=== PATIENT | male | born 1980 | race African-American/Black ===

== ENCOUNTER 2021-10-16 10:34 | Inpatient (IN) | payer OTHER ==
[2021-10-16] MEDS ORDERED: IBUPROFEN 400 MG TABLET (FP) PO PRN (11:21)
[2021-10-16] MEDS ORDERED: P-EPHED 60MG/TRIPROLIDI 2.5MG TABLET PO PRN (11:21)
[2021-10-16] MEDS ORDERED: NICOTINE 10 MG CARTRIDGE (INHALER) IH PRN (11:21)
[2021-10-16] MEDS ORDERED: guaiFENesin 200 MG/10 ML 10 ML UNIT-DOSE CUPS PO PRN (11:21)
[2021-10-16] MEDS ORDERED: MAGNESIUM CITRATE 300 ML BOTTLE PO PRN (11:21)
[2021-10-16] MEDS ORDERED: LOPERAMIDE HCL 2 MG CAPSULE PO PRN (11:21)
[2021-10-16] MEDS ORDERED: ACETAMINOPHEN 325 MG TABLET (FP) PO PRN (11:21)
[2021-10-16] MEDS ORDERED: MAGNESIUM HYDROX 2400MG/30ML ORAL SUSPENSION 30 ML CUP PO PRN (11:21)
[2021-10-16] MEDS ORDERED: MAG HYDROX/AL HYDROX/SIMETH 30 ML UNIT-DOSE CUP PO PRN (11:21)
[2021-10-16 11:45] VITALS: BMI 30.9
[2021-10-16 16:23] LABS: HEMOGLOBIN 14.1 GM/dL (11.7-16.9); MCHC 33.6 g/dl (32.0-35.9); MEAN CELL VOLUME 92.1 fl (80-96); PLATELET COUNT 270 10^3/uL (134-434); RBC 4.55 M/mm3 (4.00-5.60); RDW 14.2 % (11.9-15.9); WHITE BLOOD COUNT 5.3 K/mm3 (4.0-10.0)
[2021-10-16 16:36] LABS: BLOOD UREA NITROGEN 7.2 mg/dL (7-18)
[2021-10-16 16:37] LABS: ALBUMIN 3.6 g/dl (3.4-5.0)
[2021-10-16 16:39] LABS: CREATININE 1.2 mg/dL (0.55-1.3)
[2021-10-16 16:40] LABS: TOT PROT 7.4 g/dl (6.4-8.2)
[2021-10-16 16:44] LABS: BILIRUBIN,TOTAL 1.2 mg/dL (0.2-1)
[2021-10-16 17:29] LABS: SYPHILIS W/ RPR CONF REACTIVE (NONREACTIVE)
[2021-10-16] MEDS: NICOTINE 14 MG/24 HOURS TOPICAL PATCH TD SCH (19:48)
[2021-10-16] MEDS: hydrOXYzine PAMOATE 25 MG CAPSULE (FP) PO SCH ×3 (19:48→21:57)
[2021-10-16] MEDS: PRENATAL VITAMINS W/ FOLIC ACID TABLET (FP) PO SCH (19:48)
[2021-10-16] MEDS: MELATONIN 5 MG TABLETS PO SCH (21:57)
[2021-10-16] MEDS: THIAMINE HCL 100 MG TABLET (FP) PO SCH (21:57)
[2021-10-16] MEDS ORDERED: TUBERCULIN PPD 5 TU/0.1ML VIAL ID ONE (22:13)
[2021-10-17] MEDS: hydrOXYzine PAMOATE 25 MG CAPSULE (FP) PO SCH ×5 (06:23→21:06)
[2021-10-17] MEDS: PRENATAL VITAMINS W/ FOLIC ACID TABLET (FP) PO SCH (09:58)
[2021-10-17] MEDS: NICOTINE 14 MG/24 HOURS TOPICAL PATCH TD SCH (09:59)
[2021-10-17] MEDS: risperiDONE 1 MG TABLET PO SCH (21:06)
[2021-10-17] MEDS: MELATONIN 5 MG TABLETS PO SCH (21:06)
[2021-10-17] MEDS: THIAMINE HCL 100 MG TABLET (FP) PO SCH (21:06)
[2021-10-18] MEDS: hydrOXYzine PAMOATE 25 MG CAPSULE (FP) PO SCH ×5 (06:21→21:43)
[2021-10-18] MEDS: risperiDONE 1 MG TABLET PO SCH ×2 (10:16→21:43)
[2021-10-18] MEDS: PRENATAL VITAMINS W/ FOLIC ACID TABLET (FP) PO SCH (10:16)
[2021-10-18] MEDS: NICOTINE 14 MG/24 HOURS TOPICAL PATCH TD SCH (10:16)
[2021-10-18] MEDS: THIAMINE HCL 100 MG TABLET (FP) PO SCH (21:43)
[2021-10-18] MEDS: MELATONIN 5 MG TABLETS PO SCH (21:43)
[2021-10-19] MEDS: hydrOXYzine PAMOATE 25 MG CAPSULE (FP) PO SCH ×5 (07:02→21:07)
[2021-10-19] MEDS: PRENATAL VITAMINS W/ FOLIC ACID TABLET (FP) PO SCH (10:04)
[2021-10-19] MEDS: risperiDONE 1 MG TABLET PO SCH ×2 (10:04→21:07)
[2021-10-19] MEDS: NICOTINE 14 MG/24 HOURS TOPICAL PATCH TD SCH (10:06)
[2021-10-19 10:49] LABS: URINE APPEARANCE CLEAR; URINE BILIRUBIN NEGATIVE (NEGATIVE); URINE COLOR YELLOW; URINE GLUCOSE (UA) NEGATIVE (NEGATIVE); URINE KETONE TRACE (NEGATIVE); URINE LEUK ESTERASE NEGATIVE (NEGATIVE); URINE NITRITE NEGATIVE (NEGATIVE); URINE PROTEIN TRACE (NEGATIVE); URINE UROBILINOGEN 0.2 mg/dL (0.2-1.0)
[2021-10-19] MEDS: MELATONIN 5 MG TABLETS PO SCH (21:07)
[2021-10-19] MEDS: THIAMINE HCL 100 MG TABLET (FP) PO SCH (21:08)
[2021-10-20] MEDS: hydrOXYzine PAMOATE 25 MG CAPSULE (FP) PO SCH ×5 (06:27→21:17)
[2021-10-20] MEDS: PRENATAL VITAMINS W/ FOLIC ACID TABLET (FP) PO SCH (09:59)
[2021-10-20] MEDS: risperiDONE 1 MG TABLET PO SCH ×2 (10:00→21:17)
[2021-10-20] MEDS: NICOTINE 14 MG/24 HOURS TOPICAL PATCH TD SCH (10:00)
[2021-10-20] MEDS: DOXYCYCLINE HYCLATE 100 MG TABLET PO SCH (17:28)
[2021-10-20] MEDS: BICTEGRAV/EMTRICIT/TENOFOV (BIKTARVY) 50-200-25 MG TABLET PO SCH (17:28)
[2021-10-20] MEDS ORDERED: CLINDAMYCIN HCL 150 MG CAPSULE (FP) PO SCH (18:00)
[2021-10-20] MEDS: TERAZOSIN HCL 1 MG CAPSULE PO SCH (21:17)
[2021-10-20] MEDS: ATORVASTATIN CA 20 MG TABLET (FP) PO SCH (21:17)
[2021-10-20] MEDS: THIAMINE HCL 100 MG TABLET (FP) PO SCH (21:18)
[2021-10-20] MEDS: MELATONIN 5 MG TABLETS PO SCH (21:18)
[2021-10-20] MEDS: valACYclovir HCL 500 MG TABLET (FP) PO SCH (21:18)
[2021-10-21] MEDS: hydrOXYzine PAMOATE 25 MG CAPSULE (FP) PO SCH ×5 (06:23→21:01)
[2021-10-21] MEDS ORDERED: ERGOCALCIFEROL (VIT D2) 50,000 UNIT (1.25 MG) CAPSULE PO SCH (10:00)
[2021-10-21] MEDS: risperiDONE 1 MG TABLET PO SCH ×2 (11:01→21:01)
[2021-10-21] MEDS: BICTEGRAV/EMTRICIT/TENOFOV (BIKTARVY) 50-200-25 MG TABLET PO SCH (11:01)
[2021-10-21] MEDS: valACYclovir HCL 500 MG TABLET (FP) PO SCH ×2 (11:01→21:01)
[2021-10-21] MEDS: NICOTINE 14 MG/24 HOURS TOPICAL PATCH TD SCH (11:13)
[2021-10-21] MEDS: PRENATAL VITAMINS W/ FOLIC ACID TABLET (FP) PO SCH (11:13)
[2021-10-21] MEDS: DOXYCYCLINE HYCLATE 100 MG TABLET PO SCH ×2 (11:17→18:50)
[2021-10-21] MEDS: ZINC SULFATE 220 MG CAPSULE (FP) PO SCH (16:02)
[2021-10-21] MEDS: ATORVASTATIN CA 20 MG TABLET (FP) PO SCH (21:01)
[2021-10-21] MEDS: TERAZOSIN HCL 1 MG CAPSULE PO SCH (21:01)
[2021-10-21] MEDS: MELATONIN 5 MG TABLETS PO SCH (21:01)
[2021-10-21] MEDS: THIAMINE HCL 100 MG TABLET (FP) PO SCH (21:01)
[2021-10-22] MEDS: hydrOXYzine PAMOATE 25 MG CAPSULE (FP) PO SCH ×5 (06:01→21:18)
[2021-10-22] MEDS: valACYclovir HCL 500 MG TABLET (FP) PO SCH ×2 (10:51→21:18)
[2021-10-22] MEDS: DOXYCYCLINE HYCLATE 100 MG TABLET PO SCH ×2 (10:51→17:30)
[2021-10-22] MEDS: risperiDONE 1 MG TABLET PO SCH ×2 (10:51→21:18)
[2021-10-22] MEDS: PRENATAL VITAMINS W/ FOLIC ACID TABLET (FP) PO SCH (10:51)
[2021-10-22] MEDS: BICTEGRAV/EMTRICIT/TENOFOV (BIKTARVY) 50-200-25 MG TABLET PO SCH (10:51)
[2021-10-22] MEDS: NICOTINE 14 MG/24 HOURS TOPICAL PATCH TD SCH (10:53)
[2021-10-22] MEDS: ZINC SULFATE 220 MG CAPSULE (FP) PO SCH (10:53)
[2021-10-22] MEDS: TERAZOSIN HCL 1 MG CAPSULE PO SCH (21:18)
[2021-10-22] MEDS: THIAMINE HCL 100 MG TABLET (FP) PO SCH (21:18)
[2021-10-22] MEDS: MELATONIN 5 MG TABLETS PO SCH (21:18)
[2021-10-22] MEDS: ATORVASTATIN CA 20 MG TABLET (FP) PO SCH (21:18)
[2021-10-23] MEDS: hydrOXYzine PAMOATE 25 MG CAPSULE (FP) PO SCH (07:15)
[2021-10-23] MEDS ORDERED: hydrOXYzine PAMOATE 25 MG CAPSULE (FP) PO PRN (09:18)
[2021-10-23] MEDS: risperiDONE 1 MG TABLET PO SCH ×2 (09:45→21:16)
[2021-10-23] MEDS: valACYclovir HCL 500 MG TABLET (FP) PO SCH ×2 (09:45→21:16)
[2021-10-23] MEDS: PRENATAL VITAMINS W/ FOLIC ACID TABLET (FP) PO SCH (09:46)
[2021-10-23] MEDS: BICTEGRAV/EMTRICIT/TENOFOV (BIKTARVY) 50-200-25 MG TABLET PO SCH (09:46)
[2021-10-23] MEDS: NICOTINE 14 MG/24 HOURS TOPICAL PATCH TD SCH (10:09)
[2021-10-23] MEDS: ZINC SULFATE 220 MG CAPSULE (FP) PO SCH (10:09)
[2021-10-23] MEDS: DOXYCYCLINE HYCLATE 100 MG TABLET PO SCH ×2 (10:11→18:24)
[2021-10-23] MEDS: THIAMINE HCL 100 MG TABLET (FP) PO SCH (21:16)
[2021-10-23] MEDS: MELATONIN 5 MG TABLETS PO SCH (21:16)
[2021-10-23] MEDS: ATORVASTATIN CA 20 MG TABLET (FP) PO SCH (21:16)
[2021-10-23] MEDS: TERAZOSIN HCL 1 MG CAPSULE PO SCH (21:17)
[2021-10-24] MEDS: PRENATAL VITAMINS W/ FOLIC ACID TABLET (FP) PO SCH (09:57)
[2021-10-24] MEDS: DOXYCYCLINE HYCLATE 100 MG TABLET PO SCH ×2 (09:58→18:19)
[2021-10-24] MEDS: risperiDONE 1 MG TABLET PO SCH ×2 (09:58→21:06)
[2021-10-24] MEDS: valACYclovir HCL 500 MG TABLET (FP) PO SCH ×2 (09:58→21:05)
[2021-10-24] MEDS: BICTEGRAV/EMTRICIT/TENOFOV (BIKTARVY) 50-200-25 MG TABLET PO SCH (09:58)
[2021-10-24] MEDS: NICOTINE 14 MG/24 HOURS TOPICAL PATCH TD SCH (09:58)
[2021-10-24] MEDS: ZINC SULFATE 220 MG CAPSULE (FP) PO SCH (09:59)
[2021-10-24] MEDS: MELATONIN 5 MG TABLETS PO SCH (21:06)
[2021-10-24] MEDS: ATORVASTATIN CA 20 MG TABLET (FP) PO SCH (21:06)
[2021-10-24] MEDS: THIAMINE HCL 100 MG TABLET (FP) PO SCH (21:06)
[2021-10-24] MEDS: TERAZOSIN HCL 1 MG CAPSULE PO SCH (21:30)
[2021-10-25] MEDS: PRENATAL VITAMINS W/ FOLIC ACID TABLET (FP) PO SCH (09:58)
[2021-10-25] MEDS: valACYclovir HCL 500 MG TABLET (FP) PO SCH ×2 (09:58→21:03)
[2021-10-25] MEDS: BICTEGRAV/EMTRICIT/TENOFOV (BIKTARVY) 50-200-25 MG TABLET PO SCH (09:58)
[2021-10-25] MEDS: risperiDONE 1 MG TABLET PO SCH ×2 (09:58→21:03)
[2021-10-25] MEDS: DOXYCYCLINE HYCLATE 100 MG TABLET PO SCH ×2 (09:59→17:09)
[2021-10-25] MEDS: ZINC SULFATE 220 MG CAPSULE (FP) PO SCH (09:59)
[2021-10-25] MEDS: NICOTINE 14 MG/24 HOURS TOPICAL PATCH TD SCH (09:59)
[2021-10-25] MEDS: ATORVASTATIN CA 20 MG TABLET (FP) PO SCH (21:03)
[2021-10-25] MEDS: MELATONIN 5 MG TABLETS PO SCH (21:04)
[2021-10-25] MEDS: THIAMINE HCL 100 MG TABLET (FP) PO SCH (21:04)
[2021-10-25] MEDS: TERAZOSIN HCL 1 MG CAPSULE PO SCH (21:05)
[2021-10-26] MEDS: valACYclovir HCL 500 MG TABLET (FP) PO SCH (09:56)
[2021-10-26] MEDS: DOXYCYCLINE HYCLATE 100 MG TABLET PO SCH ×2 (09:56→18:40)
[2021-10-26] MEDS: PRENATAL VITAMINS W/ FOLIC ACID TABLET (FP) PO SCH (09:56)
[2021-10-26] MEDS: BICTEGRAV/EMTRICIT/TENOFOV (BIKTARVY) 50-200-25 MG TABLET PO SCH (09:56)
[2021-10-26] MEDS: ZINC SULFATE 220 MG CAPSULE (FP) PO SCH (09:56)
[2021-10-26] MEDS: NICOTINE 14 MG/24 HOURS TOPICAL PATCH TD SCH (09:56)
[2021-10-26] MEDS: risperiDONE 1 MG TABLET PO SCH (11:01)
[2021-10-26 19:55] VITALS: BP 153/87; PULSE 85; TEMP 97.5
== END 2021-10-26 20:00 | disposition home or self-care (01) | DRG 772 ==
LOC: YASAS 10:34 → Y3W 16:28
PROVIDERS: ADMIT Allergy & Immunology; ATTEND Psychiatry & Neurology Pain Medicine
PROC: HZ42ZZZ Group Counseling for Substance Abuse Treatment, Cognitive-Behavioral (ICD-10-PCS; principal; 2021-10-16)
DX: F11.20 Opioid dependence, uncomplicated (principal); F10.20 Alcohol dependence, uncomplicated; F14.20 Cocaine dependence, uncomplicated; F12.20 Cannabis dependence, uncomplicated; F17.210 Nicotine dependence, cigarettes, uncomplicated; F20.9 Schizophrenia, unspecified; F31.9 Bipolar disorder, unspecified; Z21 Asymptomatic human immunodeficiency virus [HIV] infection status; E78.5 Hyperlipidemia, unspecified; Z86.19 Personal history of other infectious and parasitic diseases; Z88.2 Allergy status to sulfonamides
CPT/HCPCS: 36415; 80053; 81003; 85027; 86593; 86780; 86803; 87491; 87522; 87591; 87661; 93005; 93010; C9803-CS; J2794; U0003; U0005

== ENCOUNTER 2022-12-10 15:02 | Inpatient (IN) | payer OTHER ==
[2022-12-10 15:52] VITALS: BMI 23.7
[2022-12-10] MEDS ORDERED: POLYETHYLENE GLYCOL (HEALTHYLAX) 3350 17 GM PACKET PO PRN (18:03)
[2022-12-10] MEDS ORDERED: NICOTINE POLACRILEX 2 MG GUM BUC PRN (18:03)
[2022-12-10] MEDS ORDERED: NALOXONE HCL 0.4 MG/ML VIAL IM PRN (18:03)
[2022-12-10] MEDS ORDERED: COLLOIDAL OATMEAL 1 BAR EACH TP PRN (18:03)
[2022-12-10] MEDS ORDERED: NALOXONE HCL (KLOXXADO) 8 MG SPRAY NS PRN (18:03)
[2022-12-10] MEDS ORDERED: LOPERAMIDE HCL 2 MG CAPSULE PO PRN (18:03)
[2022-12-10] MEDS ORDERED: ACETAMINOPHEN 325 MG TABLET (FP) PO PRN (18:03)
[2022-12-10] MEDS ORDERED: BENZOCAINE/MENTHOL (CHLORASEPTIC ) LOZENGE MM PRN (18:03)
[2022-12-10] MEDS ORDERED: AMMONIUM LACTATE 12% LOTION 225 GM BOTTLE TP PRN (18:03)
[2022-12-10] MEDS ORDERED: MAGNESIUM HYDROX 2400MG/30ML ORAL SUSPENSION 30 ML CUP PO PRN (18:03)
[2022-12-10] MEDS ORDERED: guaiFENesin 600 MG TABLET.ER (FP) PO PRN (18:03)
[2022-12-10] MEDS ORDERED: BENZONATATE 200 MG CAPSULE PO PRN (18:03)
[2022-12-10] MEDS: THIAMINE HCL 100 MG TABLET (FP) PO SCH (21:39)
[2022-12-10] MEDS: MELATONIN 5 MG TABLETS PO SCH (21:39)
[2022-12-11] MEDS: NICOTINE 14 MG/24 HOURS TOPICAL PATCH TD SCH (09:53)
[2022-12-11] MEDS: PRENATAL VITAMINS W/ FOLIC ACID TABLET (FP) PO SCH (09:53)
[2022-12-11 10:10] LABS: POTASSIUM 3.8 mmol/L (3.5-5.1)
[2022-12-11 10:18] LABS: BLOOD UREA NITROGEN 10.3 mg/dL (7-18)
[2022-12-11 10:18] LABS: URINE APPEARANCE CLEAR; URINE BILIRUBIN NEGATIVE (NEGATIVE); URINE COLOR YELLOW; URINE GLUCOSE (UA) NEGATIVE (NEGATIVE); URINE KETONE NEGATIVE (NEGATIVE); URINE LEUK ESTERASE NEGATIVE (NEGATIVE); URINE NITRITE NEGATIVE (NEGATIVE); URINE PROTEIN TRACE (NEGATIVE)
[2022-12-11 10:20] LABS: BILIRUBIN,TOTAL 0.2 mg/dL (0.2-1); TOT PROT 7.1 g/dl (6.4-8.2)
[2022-12-11 10:21] LABS: CALCIUM 8.8 mg/dL (8.5-10.1); CREATININE 0.9 mg/dL (0.55-1.3); HEMATOCRIT 36.9 % (35.4-49); HEMOGLOBIN 12.7 GM/dL (11.7-16.9); MCH 29.8 pg (25.7-33.7); MCHC 34.5 g/dl (32.0-35.9); MEAN CELL VOLUME 86.3 fl (80-96); MEAN PLT VOLUME 8.3 fl (7.5-11.1); PLATELET COUNT 307 10^3/uL (134-434); RBC 4.28 M/mm3 (4.00-5.60); RDW 13.6 % (11.9-15.9); WHITE BLOOD COUNT 6.5 K/mm3 (4.0-10.0)
[2022-12-11] MEDS: MIRTAZAPINE 15 MG TABLET (FP) PO SCH (22:11)
[2022-12-11] MEDS: THIAMINE HCL 100 MG TABLET (FP) PO SCH (22:11)
[2022-12-11] MEDS: QUEtiapine FUMARATE 100 MG TABLET (FP) PO SCH (22:11)
[2022-12-11] MEDS: MELATONIN 5 MG TABLETS PO SCH (22:11)
[2022-12-12] MEDS: PRENATAL VITAMINS W/ FOLIC ACID TABLET (FP) PO SCH (10:42)
[2022-12-12] MEDS: NICOTINE 14 MG/24 HOURS TOPICAL PATCH TD SCH (10:42)
[2022-12-12] MEDS: QUEtiapine FUMARATE 100 MG TABLET (FP) PO SCH (21:05)
[2022-12-12] MEDS: THIAMINE HCL 100 MG TABLET (FP) PO SCH (21:05)
[2022-12-12] MEDS: MELATONIN 5 MG TABLETS PO SCH (21:05)
[2022-12-12] MEDS: MIRTAZAPINE 15 MG TABLET (FP) PO SCH (21:05)
[2022-12-13] MEDS: NICOTINE 14 MG/24 HOURS TOPICAL PATCH TD SCH (10:23)
[2022-12-13] MEDS: PRENATAL VITAMINS W/ FOLIC ACID TABLET (FP) PO SCH (10:24)
[2022-12-13] MEDS: THIAMINE HCL 100 MG TABLET (FP) PO SCH (21:23)
[2022-12-13] MEDS: MELATONIN 5 MG TABLETS PO SCH (21:24)
[2022-12-13] MEDS: MIRTAZAPINE 15 MG TABLET (FP) PO SCH (21:24)
[2022-12-13] MEDS: QUEtiapine FUMARATE 100 MG TABLET (FP) PO SCH (21:24)
[2022-12-14] MEDS: PRENATAL VITAMINS W/ FOLIC ACID TABLET (FP) PO SCH (10:09)
[2022-12-14] MEDS: NICOTINE 14 MG/24 HOURS TOPICAL PATCH TD SCH (10:09)
[2022-12-14] MEDS: MIRTAZAPINE 15 MG TABLET (FP) PO SCH (21:22)
[2022-12-14] MEDS: MELATONIN 5 MG TABLETS PO SCH (21:22)
[2022-12-14] MEDS: THIAMINE HCL 100 MG TABLET (FP) PO SCH (21:22)
[2022-12-14] MEDS: QUEtiapine FUMARATE 100 MG TABLET (FP) PO SCH (21:22)
[2022-12-15] MEDS: NICOTINE 14 MG/24 HOURS TOPICAL PATCH TD SCH ×2 (10:26→10:27)
[2022-12-15] MEDS: PRENATAL VITAMINS W/ FOLIC ACID TABLET (FP) PO SCH (10:26)
[2022-12-15] MEDS: THIAMINE HCL 100 MG TABLET (FP) PO SCH (21:34)
[2022-12-15] MEDS: MELATONIN 5 MG TABLETS PO SCH (21:34)
[2022-12-15] MEDS: MIRTAZAPINE 15 MG TABLET (FP) PO SCH (21:34)
[2022-12-15] MEDS: QUEtiapine FUMARATE 100 MG TABLET (FP) PO SCH (21:35)
[2022-12-15] MEDS: ALBUTEROL SO4 HFA INHALER IH PRN (21:35)
[2022-12-16] MEDS: PRENATAL VITAMINS W/ FOLIC ACID TABLET (FP) PO SCH (10:10)
[2022-12-16] MEDS: NICOTINE 14 MG/24 HOURS TOPICAL PATCH TD SCH (10:10)
[2022-12-16] MEDS: cloNIDine HCL 0.1 MG TABLET PO SCH ×2 (11:32→21:05)
[2022-12-16] MEDS: BACLOFEN 10 MG TABLET (FP) PO SCH ×2 (13:56→21:05)
[2022-12-16] MEDS: QUEtiapine FUMARATE 100 MG TABLET (FP) PO SCH (21:05)
[2022-12-16] MEDS: THIAMINE HCL 100 MG TABLET (FP) PO SCH (21:05)
[2022-12-16] MEDS: ALBUTEROL SO4 HFA INHALER IH PRN (21:05)
[2022-12-16] MEDS: MELATONIN 5 MG TABLETS PO SCH (21:05)
[2022-12-16] MEDS: MIRTAZAPINE 15 MG TABLET (FP) PO SCH (21:05)
[2022-12-17] MEDS: BACLOFEN 10 MG TABLET (FP) PO SCH ×3 (06:58→21:35)
[2022-12-17] MEDS: PRENATAL VITAMINS W/ FOLIC ACID TABLET (FP) PO SCH (10:51)
[2022-12-17] MEDS: NICOTINE 14 MG/24 HOURS TOPICAL PATCH TD SCH (10:51)
[2022-12-17] MEDS: cloNIDine HCL 0.1 MG TABLET PO SCH ×2 (12:16→21:35)
[2022-12-17] MEDS: QUEtiapine FUMARATE 100 MG TABLET (FP) PO SCH (21:35)
[2022-12-17] MEDS: MELATONIN 5 MG TABLETS PO SCH (21:35)
[2022-12-17] MEDS: THIAMINE HCL 100 MG TABLET (FP) PO SCH (21:35)
[2022-12-17] MEDS: MIRTAZAPINE 15 MG TABLET (FP) PO SCH (21:35)
[2022-12-18] MEDS: IBUPROFEN 600 MG TABLET (FP) PO PRN ×2 (07:04→12:57)
[2022-12-18] MEDS: BACLOFEN 10 MG TABLET (FP) PO SCH ×3 (07:05→21:23)
[2022-12-18] MEDS: NICOTINE 14 MG/24 HOURS TOPICAL PATCH TD SCH (09:50)
[2022-12-18] MEDS: PRENATAL VITAMINS W/ FOLIC ACID TABLET (FP) PO SCH (09:50)
[2022-12-18] MEDS: cloNIDine HCL 0.1 MG TABLET PO SCH ×2 (09:50→21:24)
[2022-12-18] MEDS: ALBUTEROL SO4 HFA INHALER IH PRN ×2 (10:03→21:23)
[2022-12-18] MEDS: MELATONIN 5 MG TABLETS PO SCH (21:24)
[2022-12-18] MEDS: QUEtiapine FUMARATE 100 MG TABLET (FP) PO SCH (21:24)
[2022-12-18] MEDS: MIRTAZAPINE 15 MG TABLET (FP) PO SCH (21:24)
[2022-12-18] MEDS: THIAMINE HCL 100 MG TABLET (FP) PO SCH (21:24)
[2022-12-19] MEDS: IBUPROFEN 600 MG TABLET (FP) PO PRN ×2 (06:55→12:55)
[2022-12-19] MEDS: BACLOFEN 10 MG TABLET (FP) PO SCH ×3 (06:56→21:24)
[2022-12-19] MEDS: ALBUTEROL SO4 HFA INHALER IH PRN (08:47)
[2022-12-19] MEDS: cloNIDine HCL 0.1 MG TABLET PO SCH ×2 (09:19→21:24)
[2022-12-19] MEDS: NICOTINE 14 MG/24 HOURS TOPICAL PATCH TD SCH (09:19)
[2022-12-19] MEDS: PRENATAL VITAMINS W/ FOLIC ACID TABLET (FP) PO SCH (09:19)
[2022-12-19] MEDS: THIAMINE HCL 100 MG TABLET (FP) PO SCH (21:23)
[2022-12-19] MEDS: MELATONIN 5 MG TABLETS PO SCH (21:23)
[2022-12-19] MEDS: MIRTAZAPINE 15 MG TABLET (FP) PO SCH (21:25)
[2022-12-19] MEDS: QUEtiapine FUMARATE 100 MG TABLET (FP) PO SCH (21:25)
[2022-12-20] MEDS: BACLOFEN 10 MG TABLET (FP) PO SCH ×3 (06:57→21:04)
[2022-12-20] MEDS: IBUPROFEN 600 MG TABLET (FP) PO PRN ×2 (06:58→14:33)
[2022-12-20] MEDS: ALBUTEROL SO4 HFA INHALER IH PRN ×2 (06:59→21:04)
[2022-12-20] MEDS: NICOTINE 14 MG/24 HOURS TOPICAL PATCH TD SCH (09:46)
[2022-12-20] MEDS: PRENATAL VITAMINS W/ FOLIC ACID TABLET (FP) PO SCH (09:46)
[2022-12-20] MEDS: cloNIDine HCL 0.1 MG TABLET PO SCH ×2 (09:47→21:04)
[2022-12-20] MEDS: MAG HYDROX/AL HYDROX/SIMETH 30 ML UNIT-DOSE CUP PO PRN (14:33)
[2022-12-20] MEDS: QUEtiapine FUMARATE 100 MG TABLET (FP) PO SCH (21:04)
[2022-12-20] MEDS: MIRTAZAPINE 15 MG TABLET (FP) PO SCH (21:04)
[2022-12-20] MEDS: MELATONIN 5 MG TABLETS PO SCH (21:04)
[2022-12-20] MEDS: THIAMINE HCL 100 MG TABLET (FP) PO SCH (21:04)
[2022-12-20] MEDS: IBUPROFEN 400 MG TABLET (FP) PO PRN (21:05)
[2022-12-21] MEDS: BACLOFEN 10 MG TABLET (FP) PO SCH ×3 (07:18→21:29)
[2022-12-21] MEDS: PRENATAL VITAMINS W/ FOLIC ACID TABLET (FP) PO SCH (09:02)
[2022-12-21] MEDS: cloNIDine HCL 0.1 MG TABLET PO SCH ×2 (09:02→21:29)
[2022-12-21] MEDS: NICOTINE 14 MG/24 HOURS TOPICAL PATCH TD SCH (09:02)
[2022-12-21] MEDS: MAG HYDROX/AL HYDROX/SIMETH 30 ML UNIT-DOSE CUP PO PRN ×2 (09:05→21:30)
[2022-12-21] MEDS: IBUPROFEN 600 MG TABLET (FP) PO PRN ×2 (13:53→21:30)
[2022-12-21] MEDS: QUEtiapine FUMARATE 100 MG TABLET (FP) PO SCH (21:29)
[2022-12-21] MEDS: MELATONIN 5 MG TABLETS PO SCH (21:29)
[2022-12-21] MEDS: MIRTAZAPINE 15 MG TABLET (FP) PO SCH (21:29)
[2022-12-21] MEDS: THIAMINE HCL 100 MG TABLET (FP) PO SCH (21:29)
[2022-12-21] MEDS: ALBUTEROL SO4 HFA INHALER IH PRN (21:30)
[2022-12-22] MEDS: BACLOFEN 10 MG TABLET (FP) PO SCH ×3 (06:19→21:04)
[2022-12-22] MEDS: cloNIDine HCL 0.1 MG TABLET PO SCH ×2 (09:51→21:04)
[2022-12-22] MEDS: PRENATAL VITAMINS W/ FOLIC ACID TABLET (FP) PO SCH (09:51)
[2022-12-22] MEDS: NICOTINE 14 MG/24 HOURS TOPICAL PATCH TD SCH (09:51)
[2022-12-22] MEDS: IBUPROFEN 400 MG TABLET (FP) PO PRN (09:53)
[2022-12-22] MEDS: ALBUTEROL SO4 HFA INHALER IH PRN ×2 (09:54→21:04)
[2022-12-22] MEDS: QUEtiapine FUMARATE 100 MG TABLET (FP) PO SCH (21:04)
[2022-12-22] MEDS: MELATONIN 5 MG TABLETS PO SCH (21:04)
[2022-12-22] MEDS: THIAMINE HCL 100 MG TABLET (FP) PO SCH (21:04)
[2022-12-22] MEDS: MIRTAZAPINE 15 MG TABLET (FP) PO SCH (21:04)
[2022-12-22] MEDS: IBUPROFEN 600 MG TABLET (FP) PO PRN (21:05)
[2022-12-23] MEDS: IBUPROFEN 600 MG TABLET (FP) PO PRN ×2 (06:51→14:26)
[2022-12-23] MEDS: BACLOFEN 10 MG TABLET (FP) PO SCH ×3 (06:52→21:10)
[2022-12-23] MEDS: cloNIDine HCL 0.1 MG TABLET PO SCH ×2 (10:17→21:10)
[2022-12-23] MEDS: PRENATAL VITAMINS W/ FOLIC ACID TABLET (FP) PO SCH (10:17)
[2022-12-23] MEDS: NICOTINE 14 MG/24 HOURS TOPICAL PATCH TD SCH (10:17)
[2022-12-23] MEDS: THIAMINE HCL 100 MG TABLET (FP) PO SCH (21:10)
[2022-12-23] MEDS: MIRTAZAPINE 15 MG TABLET (FP) PO SCH (21:10)
[2022-12-23] MEDS: MELATONIN 5 MG TABLETS PO SCH (21:10)
[2022-12-23] MEDS: QUEtiapine FUMARATE 100 MG TABLET (FP) PO SCH (21:10)
[2022-12-23] MEDS: IBUPROFEN 400 MG TABLET (FP) PO PRN (21:11)
[2022-12-23] MEDS: ALBUTEROL SO4 HFA INHALER IH PRN (21:11)
[2022-12-24] MEDS: BACLOFEN 10 MG TABLET (FP) PO SCH ×3 (06:36→21:39)
[2022-12-24] MEDS: cloNIDine HCL 0.1 MG TABLET PO SCH ×2 (09:46→21:40)
[2022-12-24] MEDS: PRENATAL VITAMINS W/ FOLIC ACID TABLET (FP) PO SCH (09:46)
[2022-12-24] MEDS: ALBUTEROL SO4 HFA INHALER IH PRN ×2 (09:46→21:39)
[2022-12-24] MEDS: NICOTINE 14 MG/24 HOURS TOPICAL PATCH TD SCH (09:47)
[2022-12-24] MEDS: IBUPROFEN 600 MG TABLET (FP) PO PRN (09:47)
[2022-12-24] MEDS: QUEtiapine FUMARATE 100 MG TABLET (FP) PO SCH (21:39)
[2022-12-24] MEDS: IBUPROFEN 400 MG TABLET (FP) PO PRN (21:40)
[2022-12-24] MEDS: THIAMINE HCL 100 MG TABLET (FP) PO SCH (21:40)
[2022-12-24] MEDS: MELATONIN 5 MG TABLETS PO SCH (21:40)
[2022-12-24] MEDS: MIRTAZAPINE 15 MG TABLET (FP) PO SCH (21:40)
[2022-12-25] MEDS: BACLOFEN 10 MG TABLET (FP) PO SCH ×3 (06:51→21:07)
[2022-12-25] MEDS: cloNIDine HCL 0.1 MG TABLET PO SCH ×2 (09:56→21:06)
[2022-12-25] MEDS: NICOTINE 14 MG/24 HOURS TOPICAL PATCH TD SCH (09:56)
[2022-12-25] MEDS: PRENATAL VITAMINS W/ FOLIC ACID TABLET (FP) PO SCH (09:56)
[2022-12-25] MEDS: IBUPROFEN 400 MG TABLET (FP) PO PRN (09:57)
[2022-12-25] MEDS: ALBUTEROL SO4 HFA INHALER IH PRN ×2 (09:58→21:07)
[2022-12-25] MEDS: IBUPROFEN 600 MG TABLET (FP) PO PRN (14:31)
[2022-12-25] MEDS: QUEtiapine FUMARATE 100 MG TABLET (FP) PO SCH (21:06)
[2022-12-25] MEDS: MELATONIN 5 MG TABLETS PO SCH (21:06)
[2022-12-25] MEDS: MIRTAZAPINE 15 MG TABLET (FP) PO SCH (21:06)
[2022-12-25] MEDS: THIAMINE HCL 100 MG TABLET (FP) PO SCH (21:06)
[2022-12-26] MEDS: BACLOFEN 10 MG TABLET (FP) PO SCH ×3 (06:37→21:37)
[2022-12-26] MEDS: ALBUTEROL SO4 HFA INHALER IH PRN ×2 (09:31→21:37)
[2022-12-26] MEDS: PRENATAL VITAMINS W/ FOLIC ACID TABLET (FP) PO SCH (09:31)
[2022-12-26] MEDS: cloNIDine HCL 0.1 MG TABLET PO SCH ×2 (09:31→21:37)
[2022-12-26] MEDS: IBUPROFEN 600 MG TABLET (FP) PO PRN ×2 (09:32→21:38)
[2022-12-26] MEDS: NICOTINE 14 MG/24 HOURS TOPICAL PATCH TD SCH (10:21)
[2022-12-26] MEDS: THIAMINE HCL 100 MG TABLET (FP) PO SCH (21:37)
[2022-12-26] MEDS: MELATONIN 5 MG TABLETS PO SCH (21:37)
[2022-12-26] MEDS: QUEtiapine FUMARATE 100 MG TABLET (FP) PO SCH (21:37)
[2022-12-26] MEDS: MIRTAZAPINE 15 MG TABLET (FP) PO SCH (21:37)
[2022-12-27 06:48] VITALS: BP 104/71; PULSE 77; RESP 18; TEMP 98.2
[2022-12-27] MEDS: BACLOFEN 10 MG TABLET (FP) PO SCH (06:50)
[2022-12-27] MEDS: NICOTINE 14 MG/24 HOURS TOPICAL PATCH TD SCH (09:14)
[2022-12-27] MEDS: cloNIDine HCL 0.1 MG TABLET PO SCH (09:14)
[2022-12-27] MEDS: PRENATAL VITAMINS W/ FOLIC ACID TABLET (FP) PO SCH (09:14)
== END 2022-12-27 10:09 | disposition home or self-care (01) | DRG 772 ==
LOC: YASAS 15:02 → Y3W 18:00
PROVIDERS: ADMIT Allergy & Immunology; ATTEND Psychiatry & Neurology Pain Medicine
PROC: HZ42ZZZ Group Counseling for Substance Abuse Treatment, Cognitive-Behavioral (ICD-10-PCS; principal; 2022-12-10)
DX: F14.20 Cocaine dependence, uncomplicated (principal); F12.20 Cannabis dependence, uncomplicated; F15.10 Other stimulant abuse, uncomplicated; F17.210 Nicotine dependence, cigarettes, uncomplicated; F20.9 Schizophrenia, unspecified; F19.94 Other psychoactive substance use, unspecified with psychoactive substance-induced mood disorder; F31.9 Bipolar disorder, unspecified; Z21 Asymptomatic human immunodeficiency virus [HIV] infection status; G47.00 Insomnia, unspecified; Z88.2 Allergy status to sulfonamides; Z91.148 Patient's other noncompliance with medication regimen for other reason; Z86.59 Personal history of other mental and behavioral disorders; Z86.69 Personal history of other diseases of the nervous system and sense organs; Z86.19 Personal history of other infectious and parasitic diseases; Z56.0 Unemployment, unspecified; Z59.00 Homelessness unspecified
CPT/HCPCS: 36415; 80053; 81003; 85027; 86593; 86780; 87635; 87811; J0475